=== PATIENT | female | born 1960 | race Caucasian/White ===

== ENCOUNTER 2016-10-29 07:27 | Inpatient (IN) | payer BC ==
[2016-10-29] MEDS ORDERED: NUBAIN INJ 10 IVP ONE (08:31)
[2016-10-29] MEDS ORDERED: PHENERGAN INJ 25 MG IVP ONE (08:31)
[2016-10-29] MEDS ORDERED: NUBAIN INJ 10 ONE (08:32)
[2016-10-29] MEDS ORDERED: PHENERGAN INJ 25 MG ONE (08:32)
--- NOTE | 2016-10-29 08:33 | DR.GENAD ---
HPI - PCP Primary Care Physician: KIAH - Complaint/Symptoms Chief Complaint Doctors Comments: General headache. Onset was yesterdayy evening. It is characterised as sharp in nature. It is diffuse in location. She talked to her pharmacist yesterday as her PCP's office was closed. She was advised to take an extra dose of her BP med and a pain medication. She took the BP med and 1 Lortab tablet and she felt better Chief Complaint:: HEADACHE SINCE 10/28/2016. TOOK BLOOD PRESSURE, WENT TO [facility]. LEFT [facility] AND ONE HOUR LATER IT EASED OFF. CALLED PHARMACY [facility] IN [place], THEY TOLD ME TO TAKE ANOTHER BLOOD PRESSURE PILL AND SOMETHING FOR PAIN. Self Treatment fo Chief Complaint: TOOK HOME MEDS - Source History Provided: Patient - Mode of Arrival Mode of Arrival: Ambulatory - Timing Onset of Chief Complaint: 10/28/16 Came on: Suddenly - Duration Duration: Constant How lon Duration: Hours - Severity Severity: Severe - Modifying Factors Worsens:: light and noise Improves:: with meds taken yesterday only. PMH - PMH Past Medical History: Yes Past Medical History: Hypertension Past Medical History Comment: chronic LBP Past Surgical History: Yes Surgical History: Hysterectomy, Organ Transplant, Other (Remote spinal fusion and a more recent L3-4 decompression a few months ago.) Past Surgical History Comment: SPINAL - Family History History of Family Medical Conditions: Yes Family Medical History: Diabetes Mellitus Family Medical History Comment: HEART PROBLEMS, THYROID, PANCREATIC CANCER - Social History Does patient currently use any type of tobacco product: No Have you used tobacco products in the last 12 months: No Type of Tobacco Use: None Does any household member use tobacco: No Alcohol Use: None Do you use any recreational Drugs:: No Lives With: Spouse Lives Where: Home - infectious screening In the last 2 months have you had wt loss of >10#?: NO Have you had fever, night sweats or hemotysis?: No Have you traveled outside the country in the last 6 months?: No Isolation: Standard ROS - Review of Systems Eyes: No Symptoms Reported ENTM: No Symptoms Reported Respiratoy: No Symptoms Reported Cardiovascular: No Symptoms Reported Gastrointestinal/Abdominal: No Symptoms Reported Genitourinary: No Symptoms Reported Neurological: Headache Musculoskeletal: No Symptoms Reported Integumentary: No Symptoms Reported Hematologic/Lymphatic: No Symptoms Reported Psychiatric: No Symptoms Reported All Other Systems: Reviewed and Negative PE - Vital Signs Vitals: Temperature 98 F Pulse Rate 77 Respiratory Rate 20 Blood Pressure [Right Arm] 171/83 Blood Pressure 219/110 O2 Sat by Pulse Oximetry 96 - General Limitations: No Limitations General Appearance: Alert - Head Head Exam: Normal Inspection - Eyes Eye exam: Normal Appearance - ENT ENT Exam: Normal Exam External Ear Exam: Normal External Inspection TM/Canal Exam: Bilateral Normal Mouth Exam: Normal Inspection Throat Exam: Normal Inspection - Neck Neck Exam: Normal Inspection - Chest Chest Inspection: Normal Inspection - Respiratory Respiratory Exam: Normal Lung Sounds Bilat - Cardiovascular Cardiovascular Exam: Regular Rate, Normal Rhythm - Abdominal Exam Abdominal Exam: Normal Inspection, Normal Bowel Sounds, Soft - Extremities Extremities Exam: Normal Inspection, Full ROM - Neurologic Neurological Exam: Alert, Oriented X3 - Psychiatric Psychiatric Exam: Normal Affect, Normal Mood - Skin Skin Exam: Warm, Dry, Intact, Normal Color Course - Reevaluation 1st: Improved 2nd: Improved - Consultation Called: 15:00 - Education/Counseling Education/Counseling: Patient Educated On: Treatment ROR - Labs Reviewed Result Diagrams: 10/29/16 09:00 10/29/16 09:00 Laboratory: WBC 5.0 X10^3/uL (3.6-10.0) 10/29/16 09:00 RBC 5.13 X10^6/uL (3.5-5.4) 10/29/16 09:00 Hgb 14.9 g/dL (12.0-16.0) 10/29/16 09:00 Hct 43.1 % (36.0-47.0) 10/29/16 09:00 MCV 84.0 fL (80.0-100.0) 10/29/16 09:00 MCH 29.1 pg (27.0-34.0) 10/29/16 09:00 MCHC 34.7 g/dL (33.0-35.0) 10/29/16 09:00 RDW 13.7 % (11.6-16.5) 10/29/16 09:00 Plt Count 132 X10^3/uL (150.0-450.0) L 10/29/16 09:00 MPV 7.9 fL (7.4-11.0) 10/29/16 09:00 Neut % 63.4 % (42.0-75.0) 10/29/16 09:00 Lymph % 22.6 % (21.0-51.0) 10/29/16 09:00 Ware % 8.5 % (0.0-13.0) 10/29/16 09:00 Eos % 4.5 % (0.9-2.9) H 10/29/16 09:00 Baso % 1.0 % (0.2-1.0) 10/29/16 09:00 Neut # 3.2 x10^3/uL (2.2-4.8) 10/29/16 09:00 Lymph # 1.1 X10^3/uL (1.3-2.9) L 10/29/16 09:00 Ware # 0.4 x10^3/uL (0.3-0.8) 10/29/16 09:00 Eos # 0.2 x10^3/uL (0.0-0.2) 10/29/16 09:00 Baso # 0.0 X10^3/uL (0.0-0.1) 10/29/16 09:00 Absolute Nucleated RBC 0.1 /100WBC 10/29/16 09:00 Sodium 142 mmol/L (136-145) 10/29/16 09:00 Corrected Sodium 143 mmol/L (136-145) 10/29/16 09:00 Potassium 3.4 mmol/L (3.5-5.1) L 10/29/16 09:00 Chloride 105 mmol/L (98-107) 10/29/16 09:00 Carbon Dioxide 31.4 mmol/L (21-32) 10/29/16 09:00 BUN 11 mg/dL (7-18) 10/29/16 09:00 Creatinine 0.69 mg/dL (0.55-1.02) 10/29/16 09:00 Est GFR (MDRD) Af Amer > 60 (>60) 10/29/16 09:00 Est GFR (MDRD) Non-Af > 60 (>60) 10/29/16 09:00 Glucose 121 mg/dL (65-99) H 10/29/16 09:00 Calcium 9.4 mg/dL (8.5-10.1) 10/29/16 09:00 Corrected Calcium TNP 10/29/16 09:00 Total Bilirubin 0.50 mg/dL (0.2-1.0) 10/29/16 09:00 AST 36 Units/L (15-37) 10/29/16 09:00 ALT 30 Units/L (12-78) 10/29/16 09:00 Alkaline Phosphatase 103 Units/L (46-116) 10/29/16 09:00 Total Protein 7.2 g/dL (6.4-8.2) 10/29/16 09:00 Albumin 3.6 g/dL (3.4-5.0) 10/29/16 09:00 Globulin 3.6 g/dL (2.5-4.5) 10/29/16 09:00 Albumin/Globulin Ratio 1.0 Ratio (1.1-2.1) L 10/29/16 09:00 - XRAY XRAY Interpreted by: Radiologist, Self, Both XRAY Findings: no acute intracranial process can be identified - EKG Rate: 60 [place]: Normal Rhythm: NSR Block: None Hypertrophy: None, LVH ST: Normal - Diagnosis Discharge Problem: Malignant hypertension - Discharge Plan Disposition: ADMITTED INPATIENT Condition: Stable - Follow ups/Referrals Follow ups/Referrals: MIAN URIOSTEGUI [Primary Care Provider] - 3 days - Instructions
[2016-10-29 09:20] LABS: EOSINOPHILS # (AUTO) 0.2 x10^3/uL (0.0-0.2); EOSINOPHILS % (AUTO) 4.5 % (0.9-2.9); HEMATOCRIT 43.1 % (36.0-47.0); HEMOGLOBIN 14.9 g/dL (12.0-16.0); LYMPHOCYTES # (AUTO) 1.1 X10^3/uL (1.3-2.9); LYMPHOCYTES % (AUTO) 22.6 % (21.0-51.0); MEAN CORPUSCULAR HEMOGLOBIN 29.1 pg (27.0-34.0); MEAN CORPUSCULAR HGB CONC 34.7 g/dL (33.0-35.0); MEAN PLATELET VOLUME 7.9 fL (7.4-11.0); MONOCYTES # (AUTO) 0.4 x10^3/uL (0.3-0.8); MONOCYTES % (AUTO) 8.5 % (0.0-13.0); NEUTROPHILS # (AUTO) 3.2 x10^3/uL (2.2-4.8); NEUTROPHILS % (AUTO) 63.4 % (42.0-75.0); PLATELET COUNT 132 X10^3/uL (150.0-450.0); RED BLOOD COUNT 5.13 X10^6/uL (3.5-5.4); RED CELL DISTRIBUTION WIDTH 13.7 % (11.6-16.5)
[2016-10-29 09:31] LABS: ALANINE AMINOTRANSFERASE 30 Units/L (12-78); ALBUMIN 3.6 g/dL (3.4-5.0); ALKALINE PHOSPHATASE 103 Units/L (46-116); ASPARTATE AMINO TRANSFERASE 36 Units/L (15-37); BLOOD UREA NITROGEN 11 mg/dL (7-18); CALCIUM 9.4 mg/dL (8.5-10.1); CARBON DIOXIDE 31.4 mmol/L (21-32); CHLORIDE 105 mmol/L (98-107); COR NA(FOR HYPERGLY) 143 mmol/L (136-145); CREATININE 0.69 mg/dL (0.55-1.02); SODIUM 142 mmol/L (136-145); TOTAL PROTEIN 7.2 g/dL (6.4-8.2); eGFR BLACK RACES > 60 (>60); eGFR NON BLACK RACES > 60 (>60)
--- NOTE | 2016-10-29 09:54 | CT ---
HISTORY: Severe headache. Study: CT brain without contrast Comparison: None. Technique: Multiple axial images of the brain were obtained from the skull base to the vertex without administra tion of IV contrast. Findings: No acute intraparenchymal hemorrhage or mass can be identified. No extra-axial fluid collections are seen. No alteration in the attenuation of the brain parenchyma can be identified to suggest acute o r subacute ischemic change. However, if the patients symptoms are clinically & neurologically concern ing for an acute ischemic event, then MR imaging of the brain with DWI sequencing would likely be jannet eficial to exclude an acute CVA. The ventricular system is symmetric and nondilated. The extracrani al structures are grossly unremarkable. IMPRESSION: 1. No acute intracranial process can be identified. Reported By:
[2016-10-29] MEDS ORDERED: NORMODYNE INJ 20 MG VIAL IVP ONE (10:50)
[2016-10-29] MEDS ORDERED: NORMODYNE INJ 20 MG VIAL ONE (11:01)
[2016-10-29] MEDS ORDERED: CATAPRES TAB 0.1 MG PO ONE (12:05)
[2016-10-29] MEDS ORDERED: CATAPRES TAB 0.1 MG ONE (12:07)
[2016-10-29] MEDS ORDERED: DILAUDID INJ IVP ONE (12:48)
[2016-10-29] MEDS ORDERED: DILAUDID INJ ONE (12:49)
[2016-10-29] MEDS ORDERED: ZOFRAN INJ 4 MG VIAL IVP ONE (13:23)
[2016-10-29] MEDS ORDERED: ZOFRAN INJ 4 MG VIAL ONE (13:24)
[2016-10-29] MEDS ORDERED: APRESOLINE INJ 20 MG VIAL IVP ONE (15:26)
[2016-10-29] MEDS ORDERED: APRESOLINE INJ 20 MG VIAL ONE (15:32)
[2016-10-29] MEDS ORDERED: NS 100 ML IV 100 ML IV ONE (15:58)
[2016-10-29] MEDS: NORVASC TAB 5 MG PO SCH (17:29)
[2016-10-29] MEDS: APRESOLINE TAB 25 MG PO SCH ×2 (17:29→21:26)
[2016-10-29] MEDS ORDERED: ZOFRAN INJ 4 MG VIAL IVP PRN (17:34)
--- NOTE | 2016-10-29 18:15 | CT ---
CT angiogram of the abdomen with contrast Indication: Malignant hypertension. Comparison: None available. Technique: Helical images of the abdomen were obtained following the uneventful administration of 100 mL of Omnipaque 350. Reformatted MIP images of the kidneys were obtained. Coronal and sagittal refor mats are also obtained. Findings: Images of the lower chest demonstrate a focal ground-glass opacity within the right middle lobe, like ly reflective of pneumonitis. Heart is normal in size. The abdominal aorta is normal in size and contour without evidence of aneurysm or dissection. There a re 2 left and a single right renal artery which are grossly patent the difficult accurately assess gi anny suboptimal bolus timing. The celiac axis, SMA, and CARLOS are grossly patent. The visualized iliac v essels are normal as well. Within the limits of a arterial phase exam, the liver appears diffusely stereotatic. Cholelithiasis w ithout evidence of cholecystitis. The pancreas, spleen, and adrenal glands are unremarkable. The kidn eys excrete contrast symmetrically on the delayed images and no hydronephrosis is seen . There no jamel ling defects either. Postsurgical changes are noted of the stomach without acute complication. The sm all bowel appears normal without obstruction or inflammation. A normal appendix is seen. The colon co ntains a few scattered colonic diverticuli without evidence of diverticulitis. There is no visualized free air or free fluid. Incidental note is made of a simple appearing fluid collection within the posterior subcutaneous soft tissues overlying the patient's laminectomy defects, likely a seroma as cysts is not convincingly co mmunicate with the thecal sac. Impression: 1. Limited exam due to suboptimal bolus timing. Essentially normal CT angiogram of the abdomen as det trung above. 2. Thyromegaly and steatosis. 3. Cholelithiasis without evidence of cholecystitis. 4. Large subcutaneous soft tissue fluid collection overlying the patient's laminectomy defects, most consistent with a seroma. There is no definite communication with the thecal sac to suggest pseudomen ingocele. Reported By:
[2016-10-29] MEDS: NORCO 10/325 TAB PO PRN (18:59)
[2016-10-29 20:24] LABS: BILIRUBIN,URINE NEGATIVE (NEGATIVE); BLOOD/HEMOGLOBIN,URINE NEGATIVE (NEGATIVE); GLUCOSE, URINE NEGATIVE (NEGATIVE); KETONES,URINE NEGATIVE (NEGATIVE); LEUKOCYTE ESTERASE ,URINE NEGATIVE (NEGATIVE); NITRITES,URINE NEGATIVE (NEGATIVE); PROTEIN,URINE 2+ (NEGATIVE); UROBILINOGEN,URINE NORMAL (NORMAL)
[2016-10-29] MEDS: COREG TAB 12.5 MG PO SCH (20:24)
[2016-10-29 20:28] LABS: APPEARANCE,URINE CLEAR (CLEAR); COLOR,URINE YELLOW (YELLOW)
[2016-10-29 20:40] LABS: BACTERIA,URINE TRACE /HPF (NEGATIVE); RBC,URINE NONE SEEN /HPF (NEGATIVE); SQUAMOUS EPITHELIAL CELL,UR FEW /HPF (NEGATIVE)
[2016-10-29 20:41] LABS: AMORPHOUS SEDIMENT,UR TRACE /HPF (NEGATIVE); HYALINE CASTS, URINE RARE /LPF (NEGATIVE)
[2016-10-29 22:25] VITALS: BMI 29.2
[2016-10-30 05:10] LABS: BASOPHILS # (AUTO) 0.1 X10^3/uL (0.0-0.1); BASOPHILS % (AUTO) 0.9 % (0.2-1.0); EOSINOPHILS # (AUTO) 0.1 x10^3/uL (0.0-0.2); HEMATOCRIT 42.4 % (36.0-47.0); HEMOGLOBIN 14.6 g/dL (12.0-16.0); LYMPHOCYTES % (AUTO) 21.7 % (21.0-51.0); MEAN CORPUSCULAR HEMOGLOBIN 29.2 pg (27.0-34.0); MEAN CORPUSCULAR HGB CONC 34.5 g/dL (33.0-35.0); MEAN CORPUSCULAR VOLUME 84.7 fL (80.0-100.0); MEAN PLATELET VOLUME 8.6 fL (7.4-11.0); MONOCYTES # (AUTO) 0.7 x10^3/uL (0.3-0.8); MONOCYTES % (AUTO) 7.6 % (0.0-13.0); NEUTROPHILS # (AUTO) 6.2 x10^3/uL (2.2-4.8); NEUTROPHILS % (AUTO) 68.8 % (42.0-75.0); PLATELET COUNT 178 X10^3/uL (150.0-450.0); RED CELL DISTRIBUTION WIDTH 13.8 % (11.6-16.5)
[2016-10-30 05:21] LABS: ALANINE AMINOTRANSFERASE 29 Units/L (12-78); ALBUMIN 3.4 g/dL (3.4-5.0); ALKALINE PHOSPHATASE 92 Units/L (46-116); ASPARTATE AMINO TRANSFERASE 32 Units/L (15-37); BLOOD UREA NITROGEN 14 mg/dL (7-18); CALCIUM 9.5 mg/dL (8.5-10.1); CARBON DIOXIDE 33.6 mmol/L (21-32); CHLORIDE 104 mmol/L (98-107); CREATININE 0.66 mg/dL (0.55-1.02); SODIUM 143 mmol/L (136-145); eGFR BLACK RACES > 60 (>60); eGFR NON BLACK RACES > 60 (>60)
[2016-10-30] MEDS: APRESOLINE TAB 25 MG PO SCH ×3 (06:20→21:00)
[2016-10-30] MEDS ORDERED: K-RIDER 10 MEQ/NS 100 ML 10 MEQ/100 ML BAG IV PRN (06:36)
[2016-10-30] MEDS ORDERED: POTASSIUM CHLORIDE LIQ 20 MEQ UDC PO PRN (06:36)
[2016-10-30] MEDS ORDERED: K-LYTE EFFERVESCENT PO PRN (06:36)
[2016-10-30] MEDS ORDERED: K-DUR TAB 20 MEQ PO PRN (06:36)
[2016-10-30] MEDS: NORCO 10/325 TAB PO PRN ×2 (07:29→15:11)
[2016-10-30] MEDS: COREG TAB 12.5 MG PO SCH (09:51)
[2016-10-30] MEDS: NORVASC TAB 5 MG PO SCH (09:51)
[2016-10-30] MEDS ORDERED: CELECOXIB 400 MG PO SCH (16:15)
[2016-10-30] MEDS: CYMBALTA PO SCH (17:56)
[2016-10-30] MEDS: FOLIC ACID TAB 1 MG PO SCH ×2 (17:57→21:00)
[2016-10-30] MEDS: SYNTHROID 100 mcg TAB PO SCH (17:57)
[2016-10-30] MEDS: LEFLUNOMIDE 20 MG PO SCH (18:06)
[2016-10-30] MEDS: COREG TAB 6.25 MG PO SCH (20:57)
[2016-10-31] MEDS: NORCO 10/325 TAB PO PRN (03:13)
[2016-10-31 05:25] LABS: BASOPHILS # (AUTO) 0.1 X10^3/uL (0.0-0.1); BASOPHILS % (AUTO) 0.8 % (0.2-1.0); EOSINOPHILS # (AUTO) 0.1 x10^3/uL (0.0-0.2); EOSINOPHILS % (AUTO) 1.9 % (0.9-2.9); HEMATOCRIT 43.7 % (36.0-47.0); HEMOGLOBIN 15.2 g/dL (12.0-16.0); MEAN CORPUSCULAR HEMOGLOBIN 29.5 pg (27.0-34.0); MEAN CORPUSCULAR HGB CONC 34.8 g/dL (33.0-35.0); MEAN CORPUSCULAR VOLUME 84.9 fL (80.0-100.0); MEAN PLATELET VOLUME 8.7 fL (7.4-11.0); MONOCYTES # (AUTO) 0.7 x10^3/uL (0.3-0.8); MONOCYTES % (AUTO) 8.9 % (0.0-13.0); NEUTROPHILS # (AUTO) 4.7 x10^3/uL (2.2-4.8); NEUTROPHILS % (AUTO) 61.4 % (42.0-75.0); PLATELET COUNT 172 X10^3/uL (150.0-450.0); RED BLOOD COUNT 5.15 X10^6/uL (3.5-5.4); WHITE BLOOD COUNT 7.6 X10^3/uL (3.6-10.0)
[2016-10-31 05:34] LABS: ALANINE AMINOTRANSFERASE 29 Units/L (12-78); ALBUMIN 3.5 g/dL (3.4-5.0); ALKALINE PHOSPHATASE 94 Units/L (46-116); ASPARTATE AMINO TRANSFERASE 34 Units/L (15-37); BLOOD UREA NITROGEN 16 mg/dL (7-18); CALCIUM 9.2 mg/dL (8.5-10.1); CARBON DIOXIDE 32.4 mmol/L (21-32); CHLORIDE 105 mmol/L (98-107); CREATININE 0.69 mg/dL (0.55-1.02); SODIUM 142 mmol/L (136-145); TOTAL PROTEIN 7.1 g/dL (6.4-8.2); eGFR BLACK RACES > 60 (>60); eGFR NON BLACK RACES > 60 (>60)
[2016-10-31] MEDS: APRESOLINE TAB 25 MG PO SCH (06:25)
[2016-10-31 09:00] VITALS: BP 152/71
[2016-10-31] MEDS ORDERED: CELEBREX PO SCH (09:00)
[2016-10-31] MEDS ORDERED: HYZAAR 50/12.5 MG PO SCH (09:00)
[2016-10-31] MEDS: FOLIC ACID TAB 1 MG PO SCH (09:21)
[2016-10-31] MEDS: LEFLUNOMIDE 20 MG PO SCH (09:21)
[2016-10-31] MEDS: COREG TAB 6.25 MG PO SCH (09:21)
[2016-10-31] MEDS: CYMBALTA PO SCH (09:21)
[2016-10-31] MEDS: NORVASC TAB 5 MG PO SCH (09:21)
[2016-10-31] MEDS: SYNTHROID 100 mcg TAB PO SCH (09:21)
== END 2016-10-31 10:30 | disposition home or self-care (01) | DRG 305 ==
LOC: ER 07:44 → ICU 15:19
PROVIDERS: ADMIT Internal Medicine; ATTEND Internal Medicine
DX: I16.0 Hypertensive urgency (principal); I10 Essential (primary) hypertension; R51 Headache; R94.31 Abnormal electrocardiogram [ECG] [EKG]; E03.8 Other specified hypothyroidism; M41.80 Other forms of scoliosis, site unspecified; R00.1 Bradycardia, unspecified
CPT/HCPCS: 36415; 70450; 74174; 80053; 81001; 83735; 84132; 85025; 93005; 93010; 96365; 96374; 96375; 99284; A4216; A4222; J0360; J1170; J2300; J2405; J2550; J3490

== ENCOUNTER → 2016-11-01 | Outpatient (CLI) | payer BC ==
[2016-10-31 09:00] VITALS: BP 152/71
--- NOTE | 2016-11-01 17:15 | MRI ---
MR brain without contrast Indication: Altered mental status and hypertension. Disoriented patient. Comparison: October 29, [address] Technique: Multiplanar multi sequence imaging through the brain without contrast. Findings: Ventricles and sulci are normal. Bone marrow signal is normal. Paranasal sinuses and mastoi d air cells are clear. Visualized soft tissues of the face and neck are normal. Orbits are grossly no rmal. There is no acute intracranial hemorrhage, mass or mass effect. No extra-axial fluid collection s seen. Tiny punctate focus of restricted diffusion on axial image 19 of series 402 could represent a tiny focal infarction. No other restricted diffusion seen. T2 weighted imaging shows normal vascular flow voids. FLAIR imaging shows scattered periventricular white matter hypoattenuation suggesting microangiopathy . Small FLAIR hyperintense signal corresponds to the DWI abnormality. Impression: 1. Tiny focus of restricted diffusion in the left temporal lobe is compatible with very small infarct ion. This appears subacute given FLAIR signal hyper intensity. 7-10 day followup should be considered . Evaluation for thromboembolic source should be considered as well. 2. Mild atrophy and microangiopathic changes with other findings as above. Reported By:
== END | disposition home or self-care (01) | DRG 948 ==
LOC: RAD 15:29
PROVIDERS: ATTEND Internal Medicine
DX: R41.82 Altered mental status, unspecified (principal); R26.89 Other abnormalities of gait and mobility; G31.89 Other specified degenerative diseases of nervous system
CPT/HCPCS: 70551